=== PATIENT | male | born 1960 | race Caucasian/White ===

== ENCOUNTER 2016-09-26 14:08 | Inpatient (IN) | payer OTHER ==
[~2016-09-26] VITALS: Ht 180.3 cm; Wt 117.5 kg
[2016-09-26 14:39] LABS: BASO # 0.1 x10^3/uL (0.0-0.2); BASO % 1 % (0-3); EOS % 2 % (0-3); HEMOGLOBIN 14.5 g/dL (13.0-17.5); LYMPH # 2.1 x10^3/uL (1.0-4.8); LYMPH % 25 % (24-48); MEAN CORPUSCULAR HEMOGLOBIN 32 pg (25-35); MEAN CORPUSCULAR HGB CONC 34 g/dL (31-37); MEAN CORPUSCULAR VOLUME 94 fL (79-100); MONO % 11 % (0-9); NEUT % 62 % (31-73); PLATELET COUNT 207 x10^3/uL (140-400); RED BLOOD COUNT 4.56 x10^6/uL (4.30-5.70); RED CELL DISTRIBUTION WIDTH 14.6 % (11.5-14.5); WHITE BLOOD COUNT 8.3 x10^3/uL (4.0-11.0)
--- NOTE | 2016-09-26 14:53 | RAD ---
Indication chest pain. A single view of the chest was obtained. No prior imaging of the chest is available. The heart and pulmonary vessels appear normal. The lungs are clear. There is no pleural fluid or pneumothorax. IMPRESSION: No acute or focal process seen in the chest
[2016-09-26 15:00] LABS: CALCIUM 9.6 mg/dL (8.5-10.1); GFR 77.9; POTASSIUM 4.4 mmol/L (3.5-5.1)
--- NOTE | 2016-09-26 15:02 | EKG ---
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
[2016-09-26] MEDS ORDERED: ONDANSETRON PF 4 MG/2 ML VIAL. IV PRN (16:15)
--- NOTE | 2016-09-26 16:15 | PHYS DOC ---
Past Medical History Past Medical History: [facility] Additional Past Medical Histor: Chronic back pain Past Surgical History: Other Additional Past Surgical Histo: Exploratory lap, multiple hernia repairs Alcohol Use: Heavy Additional Information: Beer and liquor daily Drug Use: Marijuana Social History Narrative: Occasional recreational use Adult General Chief Complaint Chief Complaint: CHEST PAIN [facility] HPI 55-year-old male who presents with chest pain that has been intermittent for the last several months but seems to occur with exertional activities as well as some increasing shortness of breath as well. Patient does not believe these had a cardiac workup in the last 3 years. Patient did have stress testing done 3 years ago that he stated was otherwise unremarkable. Patient was seen on routine evaluation today by Dr. Lackey who sent him here for evaluation and she believed he was theodore and ashen and she was concerned that he could be having a cardiac event. Upon arrival, the patient is in no acute distress at this time and without any specific complaints. He does admit to feeling occasional palpitations in his chest and feeling as though he is having chest pain. He states he may have had a prior [facility] in the past but did not have any intervention done at that time. He cannot remember a lot of details regarding this event. Currently he states his chest symptoms are very mild and rated a 3 out of 10 and he is not requesting any pain medications at this time. Review of Systems Review of Systems Constitutional: Denies fever or chills [] Eyes: Denies change in visual acuity, redness, or eye pain [] HENT: Denies nasal congestion or sore throat [] Respiratory: Denies cough or shortness of breath [] Cardiovascular: No additional information not addressed in HPI [] GI: Denies abdominal pain, nausea, vomiting, bloody stools or diarrhea [] : Denies dysuria or hematuria [] Musculoskeletal: Denies back pain or joint pain [] Integument: Denies rash or skin lesions [] Neurologic: Denies headache, focal weakness or sensory changes [] Endocrine: Denies polyuria or polydipsia [] Allergies Allergies Allergies Coded Allergies Type Severity Reaction Last Updated Verified No Known Drug Allergies 09/26/16 No Physical Exam Physical Exam Constitutional: Well developed, well nourished, no acute distress, non-toxic appearance. [] HENT: Normocephalic, atraumatic, bilateral external ears normal, oropharynx moist, no oral exudates, nose normal. [] Eyes: PERRLA, EOMI, conjunctiva normal, no discharge. [] Neck: Normal range of motion, no tenderness, supple, no stridor. [] Cardiovascular:Heart rate regular rhythm, no murmur [] Lungs & Thorax: Bilateral breath sounds clear to auscultation [] Abdomen: Bowel sounds normal, soft, no tenderness, no masses, no pulsatile masses. [] Skin: Warm, dry, no erythema, no rash. [] Back: No tenderness, no CVA tenderness. [] Extremities: No tenderness, no cyanosis, no clubbing, ROM intact, no edema. [] Neurologic: Alert and oriented X 3, normal motor function, normal sensory function, no focal deficits noted. [] Psychologic: Affect normal, judgement normal, mood normal. [] Current Patient Data Vital Signs Vital Signs Date Time Temp Pulse Resp B/P Pulse Ox O2 Delivery O2 Flow Rate FiO2 09/26/16 15:30 68 18 95 Room Air 09/26/16 14:16 98.6 170/109 98.6 Lab Values Laboratory Tests Test 09/26/16 14:30 White Blood Count 8.3x10^3/uL (4.0-11.0) Red Blood Count 4.56x10^6/uL (4.30-5.70) Hemoglobin 14.5g/dL (13.0-17.5) Hematocrit 43.0% (39.0-53.0) Mean Corpuscular Volume 94fL (79-100) Mean Corpuscular Hemoglobin 32pg (25-35) Mean Corpuscular Hemoglobin Concent 34g/dL (31-37) Red Cell Distribution Width 14.6% (11.5-14.5) H Platelet Count 207x10^3/uL (140-400) Neutrophils (%) (Auto) 62% (31-73) Lymphocytes (%) (Auto) 25% (24-48) Monocytes (%) (Auto) 11% (0-9) H Eosinophils (%) (Auto) 2% (0-3) Basophils (%) (Auto) 1% (0-3) Neutrophils # (Auto) 5.1x10^3uL (1.8-7.7) Lymphocytes # (Auto) 2.1x10^3/uL (1.0-4.8) Monocytes # (Auto) 0.9x10^3/uL (0.0-1.1) Eosinophils # (Auto) 0.2x10^3/uL (0.0-0.7) Basophils # (Auto) 0.1x10^3/uL (0.0-0.2) Sodium Level 142mmol/L (136-145) Potassium Level 4.4mmol/L (3.5-5.1) Chloride Level 103mmol/L (98-107) Carbon Dioxide Level 28mmol/L (21-32) Anion Gap 11 (6-14) Blood Urea Nitrogen 23mg/dL (8-26) Creatinine 1.0mg/dL (0.7-1.3) Estimated GFR (Cockcroft-Gault) 77.9 Glucose Level 110mg/dL (70-99) H Calcium Level 9.6mg/dL (8.5-10.1) Troponin I Quantitative < 0.017ng/mL (0.000-0.055) Laboratory Tests 09/26/16 14:30 Laboratory Tests 09/26/16 14:30 EKG EKG [] Radiology/Procedures Radiology/Procedures Portable 1 view of the chest as interpreted by me does not reveal an acute cardiopulmonary process. Course & Med Decision Making Course & Med Decision Making Pertinent Labs and Imaging studies reviewed. (See chart for details) This 55-year-old male with ongoing chest pain for the last several months and concern for an acute cardiac event today and Dr. Giordano's office will be admitted for further evaluation treatment. I discussed the need for admission with Dr. Cortes who agreed with this assessment and plan. His EKG and chest x-ray are were essentially unremarkable. His laboratory workup including a set of cardiac enzymes is also unrevealing. I discussed the need for the patient to stay at length and obtain a full cardiac workup. Patient is amenable to this and will be admitted without incident with cardiology consult placed. Dragon Disclaimer Dragon Disclaimer This electronic medical record was generated, in whole or in part, using a voice recognition dictation system. Departure Departure Impression: Primary Impression: Chest pain Disposition: ADMITTED INPATIENT Admitting Physician: Alex Cortes Condition: STABLE Referrals: JOVANNY LACKEY MD (PCP) EMERY SCHNEIDER DO Sep 26, 2016 16:15
[2016-09-26] MEDS ORDERED: FENTANYL PF 100 MCG/2 ML VIAL. IV ONE (16:45)
--- NOTE | 2016-09-26 17:25 | ACF ---
Admission Forms Criteria CARDIOLOGY GRG Clinical Indications for Admission to Inpatient Care ( Place 'X' for any and all applicable criteria): Hospital admission is needed for appropriate care of the patient because of ANY ONE of the following (1): [ ] I. Hemodynamic instability as indicated by ALL of the following (1)(2)(3) (4)(5) [ ]a) Vital signs or other findings not as expected for chronic patient condition or baseline [ ]b) Instability indicated by ANY ONE of the following: [ ]i) Hypotension [ ]ii) Symptomatic Tachycardia unresponsive to treatment ( e.g., analgesia, fluids, sedation as indicated) [ ]iii) Inadequate perfusion indicated by ANY ONE of the following: [ ] 1) Lactic acidosis (> 2 mmol/L) [ ] 2) New abnormal capillary refill (> 3 seconds) [ ] 3) Reduced urine output [ ] 4) New altered mental status [ ]iv) Orthostatic vital sign changes unresponsive to treatment (e.g., fluids) [ ]v) IV inotropic or vasopressor medication required to maintain adequate blood pressure or perfusion [ ] II. Severe heart failure as indicated by ANY ONE of the following(17)(18) [ ]a) Respiratory distress [ ]b) Hypotension [ ]c) Anasarca (refractory to outpatient therapy) [ ]d) Cardiac arrhythmias of immediate concern [ ]e) Myocardial ischemia [ ] III. Cardiac arrhythmias or findings of immediate concern indicated by ANY ONE of the following (19)(20): [ ] a) Heart rhythms that are inherently dangerous or unstable indicated by ANY ONE of the following (21)(22)(23): [ ] i) Resuscitated ventricular fibrillation or cardiac arrest [ ] ii) Ventricular escape rhythm [ ] iii) Sustained ventricular tachycardia (30 seconds or more of ventricular rhythm at greater than 100 beats per minute) [ ] iv) Nonsustained ventricular tachycardia and ANY ONE of the following: [ ] 1) Suspected cardiac ischemia as cause or consequence of ventricular tachycardia [ ] 2) In setting of acute myocarditis [ ] b) Unstable cardiac conduction defects indicated by ANY ONE of the following(23)(24)(25) [ ] i) Type II second-degree atrioventricular block [ ]ii) Third-degree atrioventricular block [ ]iii) New-onset left bundle branch block with suspected myocardial ischemia [ ]c) Any heart rhythm and ANY ONE of the following (21)(22)(26)(27) (28) [ ] i) Continuous long-term ECG monitoring needed (e.g., initiation of drug requiring monitoring for more than 24 hours) [ ] ii) Patient has automatic implanted cardioverter defibrillator that is repeatedly firing, malfunctioning, or in need of immediate adjustment of settings beyond the scope of ambulatory or observation care [ ]d) Heart rhythms of concern due to ANY ONE of the following: [ ] i) Hypotension [ ] ii) Respiratory distress [ ] iii) Association with other significant symptoms (e.g., bradycardia with syncope or ongoing dizziness, supraventricular tachycardia with chest pain (14)(15)(17) [ ] IV. Monitoring for cardiac contusion beyond the scope of observation care needed [A](30)(31)(32) [ ] V. Surgical or device complication (e.g., valve replacement complication , pacemaker dysfunction) (35)(41)(44)(45)(46) [ ] . Inpatient palliative care needed. [B](49) Also use Inpatient Palliative Care Criteria [ ] VII. Nonbacterial thrombotic (marantic) endocarditis (36)(43)(47)(48) [X] VIII. Cardiology condition, symptom, or finding for which emergency and observation care has failed or are not considered appropriate. [ ] IX. Acute valvular disease requiring inpatient as indicated by ANY ONE of the following (41) [ ]a) Acute valvular regurgitation (42) [ ]b) Noninfectious valvulitis (43) [ ]c) Obstructive valve thrombosis [ ]d) Paravalvular leak [ ]e) Other significant valvular disorder remaining after emergency or observation level of care (as appropriate) [ ]X. Pericardial disease requiring inpatient treatment as indicated by ANY ONE of the following (33)(34)(35)(36)(37) [ ]a) Suspected tamponade (38)(39)(40) [ ]b) Hemopericardium [ ]c) Other significant pericardial disorder remaining after emergency or observation level of care (as appropriate) [ ] XI. Cardiac ischemia beyond scope of emergency and observation care. [ ] XII. Hypertension requiring inpatient treatment as indicated by ANY ONE of the following (6)(7)(8) [ ]a) SBP greater than 220 mm Hg or DBP greater than 120 mmHg despite treatment [ ]b) SBP greater than 140 mm Hg or DBP greater than 100 mm Hg with evidence of acute end organ damage as indicated by ANY ONE of the following [ ] i) Encephalopathy [ ] ii) Acute renal failure as indicated by new onset of ANY ONE of the following (9)(10)(11)(12)(13) [ ]1) 3-fold rise in serum creatinine from baseline [ ]2) Serum creatinine greater than 4 mg/dL ( 354 micromoles/L) with acute rise greater than 0.5 mg/dL (44.2 micromoles/L) [ ]3) Reduction of more than 75% in estimated glomerular filtration rate from baseline [ ]4) Estimated glomerular filtration rate less than 35 mL/min/1.73m2 (0.59 mL/sec/1.73m2) in child up to 18 years of age [ ]5) Cessation of urine output indicated by ALL of the following [ ]A. Adequate volume status [ ]B. Inadequate urine output as indicated by ANY ONE of the following [ ]a. Urine output less than 0.3 mL/kg/hr for 24 hours [ ]b. Anuria (urine output less than 0.1 mL/kg/hr) for 12 hours [ ] iii) Aortic dissection [ ] iv) Myocardial Ischemia [ ] v) Left ventricular heart failure [ ]vi) Retinal Hemorrhage [ ]vii) Other significant finding [ ]c) Hypertension in child requiring inpatient treatment as indicated by ALL of the following(14)(15)(16) [ ] i) Outpatient treatment not effective, not available, or not appropriate [ ]ii) SBP or DBP greater than 95th percentile for age [ ]iii) Evidence of acute end organ damage as indicated by ANY ONE of the following [ ]1) Altered mental status [ ]2) Acute renal failure as indicated by new onset of ANY ONE of the following(9)(10)(11)(12)(13) [ ]A. 3-fold rise in serum creatinine from baseline [ ]B. Serum creatinine greater than 4 mg/dL (354 micromoles/L) with acute rise greater than 0.5 mg/dL (44.2 micromoles/L) [ ]C. Reduction of more than 75% in estimated glomerular filtration rate from baseline [ ]D. Estimated glomerular filtration rate less than 35 mL/min/1.73m2 (0.59 mL/sec/1.73m2) in child up to 18 years of age [ ]E. Cessation of urine output indicated by ALL of the following [ ]a. Adequate volume status [ ]b. Inadequate urine output as indicated by ANY ONE of the following [ ]i) Urine output less than 0.3 mL/kg/hr for 24 hours [ ]ii) Anuria ( urine output less than 0.1 mL/kg/hr) for 12 hours [ ]3) Severe headache [ ]4) Visual disturbance [ ]5) Retinal hemorrhage [ ]6) Other significant finding [ ]XIII. Complications of transplanted heart indicated by ANY ONE of the following(61): [ ]a) Acute graft rejection requiring inpatient management (eg, intravenous immunosuppression)(62)(63) [ ]b) Acute graft heart failure indicated by ANY ONE of the following(64): [ ]i) Hemodynamic instability [ ]ii) Cardiac arrhythmias of immediate concern [ ]iii) Pulmonary edema that is very severe (eg, mechanical ventilation needed, imminent or likely, need for 100% oxygen to keep oxygen saturation above 90%) [ ]iv) Pulmonary edema that is persistent as indicated by ALL of the following: [ ]1) New need for oxygen therapy to keep oxygen saturation above 90% (or increased FiO2 need from baseline) [ ]2) Has not improved sufficiently with emergency department or observation care IV diuretics or other heart failure treatments[E] [ ]v) Altered mental status that is severe or persistent [ ]vi) Increased creatinine (new on laboratory test) with reduction of more than 50% in estimated glomerular filtration rate from baseline [ ]vii) Progressively (ongoing) rising creatinine (known from past laboratory test) with reduction of more than 25% in estimated glomerular filtration rate from baseline [ ]viii) Acute renal failure [ ]ix) Acute peripheral ischemia (eg, examination shows pulseless, cool, mottled, or cyanotic extremity) [ ]x) Pulmonary artery catheter monitoring needed [ ]xi) Other sign or symptom of heart failure requiring inpatient treatment (ie, too severe or not responsive to outpatient and observation care treatment) [ ]c) Infection requiring inpatient management (eg, Hemodynamic instability, need for intravenous antimicrobial treatment)(66)(67)(68)(69)(70) [ ]d) Cardiac allograft vasculopathy requiring inpatient management ( eg evidence of cardiac ischemia)(71) [ ]e) Other complication of transplanted heart (eg, stroke, severe pulmonary hypertension, severe valvular dysfunction) requiring inpatient management(72) The original [facility] content created by [facility] has been revised. The portions of the content which have been revised are identified through the use of italic text or in bold, and [facility] has neither reviewed nor approved the modified material. All other unmodified content is copyright [facility]. Please see references footnoted in the original [facility] edition 2016 Admission Criteria Met?: Yes DESTINY MOLINA Sep 26, 2016 17:25
[2016-09-26 18:07] VITALS: BP 179/97
[2016-09-26] MEDS ORDERED: LISINOPRIL 10 MG TABLET PO ONE (18:30)
--- NOTE | 2016-09-26 18:53 | CONS ---
DATE OF CONSULTATION: 09/26/2016 REASON FOR CONSULTATION: Abnormal EKG. HISTORY OF PRESENT ILLNESS: The patient is a pleasant 55-year-old gentleman who comes into the hospital at the direction of his primary care physician. He went there today for a routine visit and was describing some chest discomfort to his primary care physician and EKG was obtained which was apparently concerning to the primary care physician and therefore he was transferred to the ER. Upon arrival to the ER, he was hypertensive with systolic blood pressures in the 180s, but otherwise did not have any significant symptoms. In speaking with the patient today, he reports that he has had occasional intermittent chest pain. 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 He denies any syncope, orthopnea, palpitations, or PND. He does have mild occasional exertional dyspnea. The patient also reports extensive alcohol use and drinks approximately 12 beers a day as well as hard liquor. PAST MEDICAL HISTORY: 1. Hypertension. 2. Dyslipidemia. 3. Alcohol abuse. FAMILY HISTORY: Noncontributory. SOCIAL HISTORY: The patient denies any smoking. 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 He consumes heavy alcohol as noted above. ALLERGIES: No known drug allergies. REVIEW OF SYSTEMS: Negative for 10 out of 14 systems reviewed, unless otherwise mentioned above in HPI. PHYSICAL EXAMINATION: VITAL SIGNS: Afebrile, 74, 18, 179/97, 96% on room air. GENERAL: He is alert and oriented, in no acute distress. HEAD AND NECK: Unremarkable. CARDIAC: Regular rate and rhythm without any murmurs, rubs or gallops. LUNGS: Clear to auscultation. ABDOMEN: Soft, nontender, nondistended. EXTREMITIES: No clubbing, cyanosis or edema. NEUROLOGIC: No focal deficits. MUSCULOSKELETAL: No trauma. DIAGNOSTIC STUDIES: Cardiac enzymes negative x 1, CBC within normal limits and basic metabolic profile within normal limits. Chest x-ray is unremarkable. EKG is not currently available for review. IMPRESSION: 1. Atypical chest pain in the setting of hypertensive history. 2. Minimally abnormal EKG. RECOMMENDATIONS: Given the patient's risk factors of male gender, intermittent exertional dyspnea and chest pain and heavy alcohol use, we will rule out any significant ischemic heart disease with a nuclear stress test tomorrow. Initiate lisinopril and continue home medications and antihypertensive regimen. Thank you for this consultation. FRANCOISE VALERA MD DR: DELORIS/renea JOB#: [id number] / [id number]
[2016-09-26 19:15] VITALS: BP 160/92
[2016-09-26] MEDS ORDERED: GABA-586 PO (19:50)
[2016-09-26] MEDS ORDERED: CARV25TA2 PO (19:50)
[2016-09-26] MEDS ORDERED: OMEP20CA9 PO (19:50)
[2016-09-26] MEDS ORDERED: FOLI1TAB16 PO (19:50)
[2016-09-26] MEDS ORDERED: ATOR20TA58 PO (19:50)
[2016-09-26] MEDS ORDERED: HYDR-2672 PO (19:50)
[2016-09-26] MEDS ORDERED: DULO30CA2 PO (19:50)
[2016-09-26] MEDS ORDERED: BUTA1CAP57 PO (19:50)
[2016-09-26] MEDS ORDERED: AMLO10TA2 PO (19:50)
[2016-09-26] MEDS: FENTANYL PF 100 MCG/2 ML VIAL. IV PRN (20:09)
[2016-09-26] MEDS: GABAPENTIN 300 MG CAPSULE. PO SCH (20:12)
[2016-09-26] MEDS: CARVEDILOL 12.5 MG TABLET PO SCH (20:12)
[2016-09-26] MEDS: HYDROCODONE/APAP 10/325 TABLET. PO PRN (20:13)
[2016-09-26] MEDS ORDERED: BUTALB/APAP/CAFEIN 50/325/40MG TABLET. PO PRN (20:15)
[2016-09-26] MEDS ORDERED: ASPI-482 PO (20:38)
[2016-09-26] MEDS ORDERED: ATORVASTATIN CALCIUM 20 MG TABLET PO SCH (21:00)
[2016-09-26] MEDS: HYDROMORPHONE 2 MG/ML VIAL. IV PRN (21:35)
[2016-09-26 23:28] VITALS: BP 133/76
[2016-09-27 03:45] VITALS: BP 138/84
[2016-09-27] MEDS: HYDROMORPHONE 2 MG/ML VIAL. IV PRN (05:13)
[2016-09-27 07:15] VITALS: BP 150/92
[2016-09-27] MEDS ORDERED: PANTOPRAZOLE 40 MG TABLET. PO SCH (07:30)
[2016-09-27] MEDS: CARVEDILOL 12.5 MG TABLET PO SCH (08:52)
[2016-09-27] MEDS: GABAPENTIN 300 MG CAPSULE. PO SCH (08:53)
[2016-09-27] MEDS ORDERED: AMLODIPINE BESYLATE 10 MG TABLET PO SCH (09:00)
[2016-09-27] MEDS ORDERED: LISINOPRIL 20 MG TABLET PO SCH (09:00)
[2016-09-27] MEDS ORDERED: ASPIRIN ENTERIC COATED 81 MG TABLET.DR. PO SCH (09:00)
[2016-09-27] MEDS ORDERED: DULOXETINE HCL 30 MG CAPSULE.DR. PO SCH (09:00)
[2016-09-27] MEDS ORDERED: REGADENOSON 0.4 MG/5 ML DISP.SYRIN. IV ONE (09:00)
[2016-09-27] MEDS ORDERED: FOLIC ACID 1 MG TABLET PO SCH (09:00)
[2016-09-27] MEDS: FENTANYL PF 100 MCG/2 ML VIAL. IV PRN (10:33)
[2016-09-27] MEDS: HYDROCODONE/APAP 10/325 TABLET. PO PRN ×2 (10:38→14:09)
[2016-09-27] MEDS ORDERED: GABAPENTIN 300 MG CAPSULE. PO SCH ×2 (14:00→21:00)
--- NOTE | 2016-09-27 14:19 | RAD ---
APPROVED REPORT Test Type: Pharmacological Stress Nurse/Tech: Lien Cotton RN Test Indications: chest pain x 1 month Cardiac History: see ehr Medications: see ehr Medical History: see ehr Resting ECG: SR Resting Heart Rate: 66 bpm Resting Blood Pressure: 142/87mmHg Pretest Chest Pain: None Nurse/Tech Notes Lungs CTA, S1, S2 Consent: The procedure was explained to the patient in lay terms. Informed consent was witnessed. Billy eout was entered into [employer]. History and Stress Test performed by [facility]. Details Pharmacologic stress testing was performed using 0.4mg per 5ml of regadenoson given intravenously ove r 7-10 seconds. Stress Symptoms No chest pain or symptoms. POST EXERCISE Reason for Termination: Infusion complete Max HR: 90 bpm Max Blood Pressure: 145/91mmHg Blood Pressure response to exercise: Normal blood pressure response during stress. Chest Pain: No. Arrhythmia: No. ST Change: No. INTERPRETATION Stress EKG Conclusion: No acute changes were noted. Imaging Protocol IMAGE PROTOCOL: Rest Tc-99m/stress Tc-99m 1 day Rest: Stress: Viability: Radiopharm.Tc99m [id number] Sestamibi Dose10.9mCi 37.9mCi Duration 17min. 10min. Img Date 09/27/2016 09/27/2016 Inj-Img Oiom50frc. 60min. Rest Admin Site:IV - Left AntecubitalAdministrator:RINKU Roberts Stress Admin Site: IV - Left AntecubitalAdministrator: RINKU Roberts STRESS DATA End Diast. Vol.161.0mlAv. Heart Rate68.0bpm End Syst. Vol.48.0mlCO Index BSA0.0L/min Myocardial Fhth670.0gEject. Izkqwsfo82.0% Stress Rates Pk. Fill Rate2.98EDV/secLVtime Pk. Fill 183.32msec Pk. Empty Rate3.72ESV/secLVtime Pk. Ifxhp581.55msec 08/19 Pk. Fill1.69EDV/sec Stress Scores Regional WT0.00Summed WT0.00 Regional WM0.00Summed WM1.00 The rest and stress images show normal perfusion, normal contraction and thickening. LV Perf. Quant 17 Seg. SSS0.00 17 Seg. SRS0.00 17 Seg. SDS0.00 Stress Defect Extent (% LAD)0.00Rest Defect Extent (% LAD)0.00Rev. Defect Extent (% LAD)0.00 Stress Defect Extent (% LCX) 0.00Rest Defect Extent (% LCX)0.00Rev. Defect Extent (% LCX)0.00 Stress Defect Extent (% RCA)0.00Rest Defect Extent (% RCA)0.00Rev. Defect Extent (% RCA)0.00 Stress Defect Extent (% RACHEL)0.00Rest Defect Extent (% RACHEL)0.00Rev. Defect Extent (% RACHEL)0.00 Other Information Quality:Average Risk Assessment: Low Risk Conclusion 1. Negative EKG response to vasodilator stress 2. Normal perfusion at stress/rest 3. Low risk study. EF > 70%
[2016-09-27 15:31] VITALS: BP 141/86
[2016-09-27] MEDS ORDERED: LISI-334 PO (15:35)
--- NOTE | 2016-09-27 15:46 | PDOC ---
Provider Note Provider Note H&P and discharge summary combined dictation # [id number] Bethany MORILLO MD Sep 27, 2016 15:46
--- NOTE | 2016-09-28 02:53 | HP ---
ADMIT DATE: 09/26/2016 ADMISSION HISTORY AND PHYSICAL AND DISCHARGE SUMMARY COMBINED ADMISSION DIAGNOSIS: Chest pain. DISCHARGE DIAGNOSES: Chest pain, acute coronary syndrome ruled out. ASSOCIATED DIAGNOSES: Hypertension, hyperlipidemia, alcohol abuse, chronic back pain. HISTORY AND HOSPITAL COURSE: This is a 55-year-old white male who came to the office the day of admission and saw Dr. Lackey. He was having chest discomfort and he was diaphoretic and ashen in color during the visit. Ambulance was called and he declined their transport to the hospital, instead went by private vehicle. 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 He had been having intermittent chest pain. He was a bit hypertensive at the time of his visit. He was seen in the Emergency Room, but his initial cardiac enzymes and EKG were unremarkable, but because of the acute cardiac symptoms at his office presentation, he was admitted for cardiac consultation. Dr. Kellogg saw him in consultation and at this point, his additional cardiac workup is negative including a negative stress MPI. PAST MEDICAL HISTORY: Positive for coronary artery disease, having had a heart attack 3 years ago. He has hyperlipidemia, hypertension. He has been exposed to smoke as an occupational hazard. He has GERD. He has osteoarthritis, degenerative disk disease, and chronic back pain. PAST SURGICAL HISTORY: Include multiple lumbar laser disk procedures. He has had arthroscopy of his knee. He has had a ventral hernia repair x 4. FAMILY HISTORY: He denies any significant family history. SOCIAL HISTORY: He is . His is present. He has substantial alcohol history. Interestingly though, he did not have any alcohol withdrawal symptoms while here in the hospital. ALLERGIES: He has no known drug allergies. HOME MEDICATIONS: Include amlodipine 10 mg daily, aspirin 81 daily, atorvastatin 20 at bedtime, Fioricet one tablet q.6 hours p.r.n. headache, carvedilol 25 mg b.i.d., duloxetine 30 mg daily, folic acid 1 daily, gabapentin 300 mg b.i.d., [place] 10/325 two tabs q.4 hours p.r.n. back pain, lisinopril 20 mg, omeprazole 20 mg. REVIEW OF SYSTEMS: CHEST: Significant for the above chest symptoms. PULMONARY: Occasional cough. GASTROINTESTINAL: Occasional heartburn. GENITOURINARY: Negative. MUSCULOSKELETAL: Chronic back pain. NEUROLOGIC: Positive for neuropathy pain in his legs. CONSTITUTIONAL: Negative for fever or chills. HEENT: Unremarkable for acute changes in hearing or vision. ENDOCRINE: Negative for diabetic or thyroid symptoms. PHYSICAL EXAMINATION: VITAL SIGNS: During the hospital, showed stable vital signs, although his blood pressure was elevated in the 150/90 range. GENERAL: He was not in any significant distress. He did not have any chest pain while hospitalized. HEENT: Unremarkable. Nonicteric sclerae and conjunctivae are clear. No sinus congestion. No allergic features. Moist mucous membranes. NECK: Supple, without mass or bruits. CARDIOVASCULAR: Heart regular rate and rhythm without murmur, gallop or rub. LUNGS: Clear to auscultation. ABDOMEN: Nondistended, nontender. MUSCULOSKELETAL: No focal weakness noted on musculoskeletal exam. No effusions. No synovitis. SKIN: No skin problems were encountered. LABORATORY AND DIAGNOSTIC DATA: Showed a normal CBC, unremarkable chemistries with the exception of a glucose of 110. Troponins negative x 3. Chest x-ray showed no acute process without past for comparison. Nuclear medicine scan showed a negative EKG response to vasodilator stress. There is normal perfusion at rest and stress, low risk study with an EF of greater than 70%. His EKG did not show any specific abnormalities. ASSESSMENT AND PLAN: Chest pain in a patient with known coronary artery disease, admitted for serial enzymes, EKGs, and stress test, all of which were unremarkable. He was seen in cardiac consultation by Dr. Kellogg and therefore discharged home after he has negative evaluation. He will follow up with Dr. Lackey in the office for routine care. He will also follow up for control of his chronic back pain. He did not tolerate fentanyl very well for pain and requested Dilaudid on one occasion. His etiology of his pain is not quite clear, could be reflux, so GI evaluation may be warranted in the near future as an outpatient. MEDICATIONS AT DISCHARGE: Lisinopril 20 mg daily, amlodipine 10 mg daily, aspirin 81 daily, atorvastatin 20 daily, butalbital, acetaminophen, caffeine 50/300/40 one q.6 hours p.r.n. headache, carvedilol 25 b.i.d., duloxetine 30 daily, folic acid 1 mg daily, gabapentin 300 b.i.d., [place] 10/325 q.4 hours p.r.n. pain, omeprazole 20 mg daily. W Grecia MORILLO MD DR: PATRICIA/renea JOB#: [id number] / [id number]
== END 2016-09-27 16:17 | disposition home or self-care (01) | DRG 392 ==
LOC: ER 14:08 → 2 SOUTH 15:39
PROVIDERS: ADMIT Family Medicine; ATTEND Family Medicine
DX: K21.9 Gastro-esophageal reflux disease without esophagitis (principal); R07.89 Other chest pain; I10 Essential (primary) hypertension; G89.29 Other chronic pain; F10.10 Alcohol abuse, uncomplicated; E78.5 Hyperlipidemia, unspecified; M54.9 Dorsalgia, unspecified; I25.2 Old myocardial infarction; I25.10 Atherosclerotic heart disease of native coronary artery without angina pectoris; Z79.82 Long term (current) use of aspirin; F12.90 Cannabis use, unspecified, uncomplicated; Z79.899 Other long term (current) drug therapy
CPT/HCPCS: 36415; 71010; 78452; 80048; 84484; 85027; 93005; 93017; 96374; 96375; 96376; A9500; J1170; J2785; J3010; 99285-25